=== PATIENT | male | born 1975 | race Hispanic/Latino ===

== ENCOUNTER 2017-03-25 10:37 | Day surgery (SDC) | payer OTHER ==
[~2017-03-25 10:37] MED LIST: ANCEF/STERILE WATER 2 GM/20 ML 2 GM/20 ML SYRINGE IV SCH; LACTATED RINGERS 1,000 ML IV SCH; PEPCID PO NR; VERSED IV NR
[2017-03-25] MEDS ORDERED: ceFAZolin 2 GM in NACL 0.9% 100 ML IV ONE (12:00)
--- NOTE | 2017-03-25 12:44 | Anesthesia Consultation ---
Anesthesia Consult and Med Hx Date of service: 03/25/17 - Airway Anesthetic Teeth Evaluation: Good ROM Head & Neck: Adequate Mental/Hyoid Distance: Adequate Mallampati Class: Class II Intubation Access Assessment: Good - Pulmonary Exam CTA: Yes - Cardiac Exam Cardiac Exam: No Murmur - Pre-Operative Health Status ASA Pre-Surgery Classification: ASA2 Proposed Anesthetic Plan: General - Pulmonary Hx Smoking: Yes (SMOKED 1/2 PACK A DAY FOR 16Y, QUIT 01/2017) - Central Nervous System Hx Psychiatric Problems: No - Other Systems Hx Alcohol Use: Yes (OCCAS) Hx Substance Use: No Hx Cancer: No
--- NOTE | 2017-03-25 12:45 | Anesthesia Day of Surgery ---
Anesthesia Day of Surgery - Day of Surgery Patient Examined: Yes Patient H&P Reviewed: Yes Patient is NPO: Yes
[2017-03-25] MEDS ORDERED: DILAUDID ONE (13:32)
[2017-03-25] MEDS ORDERED: VERSED ONE (13:32)
[2017-03-25] MEDS ORDERED: XYLOCAINE 2%/ EPI 1:200,000 INFILTRATI ONE (13:32)
[2017-03-25] MEDS ORDERED: DIPRIVAN 10 MG/ML IV ONE (13:33)
[2017-03-25] MEDS ORDERED: MARCAINE 0.5% 30 ML INFILTRATI ONE (13:33)
--- NOTE | 2017-03-25 14:08 | Discharge Summary ---
Short Stay Discharge Plan Activity: other (august d/c when stable. reg diet. d/c packing in shower on Sat. irrigate wd with 50% h202/NS alejandrina qd. cover wd with gauze and tape) Weight Bearing Status: Full Weight Bearing Diet: regular Wound: per your surgeon's advice Additional Instructions: aleve I po q 6-8 hrs prn for breakthrough pain Follow up with: VANDANA BRENNAN MD [Staff Physician] - 03/29/17
[2017-03-25 16:31] VITALS: BP 123/81
--- NOTE | 2017-03-25 18:52 | Operative Report ---
PREOPERATIVE DIAGNOSIS: Bilateral nonhealing ulcerative areolar lesions. POSTOPERATIVE DIAGNOSIS: Bilateral nonhealing ulcerative areolar lesions. PROCEDURE: Excisional biopsy and packing of aforementioned areolar ulcerative lesions. SURGEON: Jorge Mora MD. ANESTHESIA: A 0.5% Marcaine with IV sedation. COMPLICATIONS: No complications. DESCRIPTION OF PROCEDURE: The patient was taken to the operating room, prepped and draped in usual sterile fashion. Both lesions were clearly visible on the lateral portion of the upper outer quadrant of the areola. Both lesions were removed in similar fashion using a different needles and blades. A 0.5% Marcaine and 2% Xylocaine with epinephrine was infiltrated over the areas to be incised. An 11 blade was used to excise the lesions in their entirety. The hemostasis was obtained with electrocauterization. The cavity was then irrigated copiously and dried. Once again checked for hemostasis and noted to be dry. The outer most portions of the skin were closed with interrupted 4-0 Prolene. The center core was packed with quarter inch iodoform gauze. Both specimens were sent for pathology. Cultures were also taken. Fluffs and pressure dressings applied. The patient tolerated the procedure well and left the OR in stable condition. JOB# [id number] SELAM/MICHELLE
== END 2017-03-25 15:15 | disposition home or self-care (01) ==
LOC: OR 10:37
PROVIDERS: ATTEND Surgery
DX: L82.0 Inflamed seborrheic keratosis (principal); E78.5 Hyperlipidemia, unspecified; Z98.890 Other specified postprocedural states; Z87.891 Personal history of nicotine dependence
CPT/HCPCS: 19120; 87075; 87116; 88305; J0690; J1170; J2250; J2704; J7120